=== PATIENT | female | born 1950 | race Caucasian/White ===

== ENCOUNTER 2020-04-09 03:01 | Emergency (ER) | payer MEDICARE, BC ==
[~2020-04-09] VITALS: Ht 152.4 cm; Wt 54.4 kg
[2020-04-09] MEDS ORDERED: MELATONIN5 MG SUBLING (03:12)
[2020-04-09] MEDS ORDERED: SUPER THERAVIT1 EACH PO (03:12)
[2020-04-09 03:34] LABS: ABSOLUTE BASOPHILS 0.1 thou/uL (0.0-0.2); ABSOLUTE EOSINOPHILS 0.1 thou/uL (0.0-0.7); ABSOLUTE LYMPHOCYTES 1.4 thou/uL (0.8-5.3); ABSOLUTE MONOCYTES 0.7 thou/uL (0.0-1.2); ABSOLUTE NEUTROPHILS 2.6 thou/uL (1.6-8.1); BASOPHILS 1.1 %; EOSINOPHILS 2.5 %; HEMATOCRIT 33.6 % (37.0-47.0); HEMOGLOBIN 11.7 gm/dL (12.0-15.0); MCH 33.4 pg (26.0-34.0); MCHC 34.8 g/dL (28.0-37.0); MCV 95.9 fL (80.0-100.0); MONOCYTES 13.5 %; MPV 6.3 fl. (7.2-11.1); NUCLEATED RBCS 0 /100WBC; PLATELET COUNT* 236 thou/uL (150-400); POLYS 53.9 %; RBC 3.51 mil/uL (4.20-5.00); RDW-CV 12.2 % (10.5-14.5); WBC 4.9 thou/uL (4.0-11.0)
[2020-04-09 03:45] LABS: CALCIUM 8.5 mg/dL (8.5-10.1); CREATININE 0.9 mg/dL (0.6-1.3); POTASSIUM 3.7 mmol/L (3.5-5.1)
[2020-04-09 03:48] LABS: PROTIME 10.8 Seconds (9.20-11.50)
[2020-04-09 03:55] LABS: ALBUMIN 3.7 g/dL (3.4-5.0); TOTAL BILIRUBIN 0.5 mg/dL (<0.1-1.0); TOTAL PROTEIN 6.8 g/dL (6.4-8.2)
[2020-04-09 05:31] LABS: URINE BILIRUBIN NEGATIVE (Negative); URINE BLOOD TRACE (Negative); URINE CLARITY CLEAR; URINE COLOR YELLOW; URINE GLUCOSE-RANDOM NEGATIVE (Negative); URINE KETONES NEGATIVE (Negative); URINE LEUKOCYTES-REFLEX NEGATIVE (Negative); URINE NITRITE-REFLEX NEGATIVE (Negative); URINE PROTEIN NEGATIVE (Negative); URINE SPECIFIC GRAVITY 1.015 (1.005-1.030); URINE UROBILINOGEN 0.2 E.U./dl (0.2-1.0)
[2020-04-09 06:38] VITALS: BP 130/66
--- NOTE | 2020-04-09 10:22 | EKG ---
[place] [address] ELECTROCARDIOGRAM REPORT Name: MATTHEW SHER [facility] [id number] Admission: 04/09/20 Attend Phys: Discharge: 04/09/20 Date of : 52 Date of Service: 04/09/20305 Report #: [id number] THIS REPORT FOR: //name// [facility] ED Test Date: 2020-04-09 Test Time: 03:06:58 Pat Name: MATTHEW SHER Department: Room: Gender: Accountant Budget: [place] : 1950 Requested By: Shazia Mora Order Number: [id number] MD: David Mg Measurements Intervals Holiday Rate: 74 P: 60 MI: 159 QRS: 23 QRSD: 87 T: 14 QT: 383 QTc: 425 Interpretive Statements Sinus rhythm No previous ECG available for comparison Electronically Signed On 04-09-2020 10:22:04 CDT by David Mg [email or web address] <ELECTRONICALLY SIGNED> By: David Mg MD, [facility] 04/09/20 1022 5 5 David Mg MD, FACC /EPI
== END 2020-04-09 06:39 | disposition still patient (30) ==
LOC: M.ERS 03:01
PROVIDERS: Emergency Medicine
DX: R07.89 Other chest pain (principal); Z88.2 Allergy status to sulfonamides; Z85.3 Personal history of malignant neoplasm of breast